=== PATIENT | male | born 1960 | race Two or more races ===

== ENCOUNTER 2019-06-18 11:35 | Emergency (ER) | payer MEDICARE, MEDICAID ==
[~2019-06-18] VITALS: Ht 170.2 cm; Wt 98.4 kg
[2019-06-18 11:48] VITALS: BP 134/74
[2019-06-18] MEDS ORDERED: cefTRIAXone SOD 1,000 MG VL IM ONE ×2 (14:45)
== END 2019-06-18 15:52 | disposition home or self-care (01) ==
LOC: ER 11:35
DX: S00.86XA Insect bite (nonvenomous) of other part of head, initial encounter (principal); W57.XXXA Bitten or stung by nonvenomous insect and other nonvenomous arthropods, initial encounter; Y93.89 Activity, other specified; Y92.89 Other specified places as the place of occurrence of the external cause; Y99.8 Other external cause status
CPT/HCPCS: 96372; 99283; J0696

== ENCOUNTER 2019-06-22 14:51 | Emergency (ER) | payer MEDICARE, MEDICAID ==
[~2019-06-22] VITALS: Ht 170.2 cm; Wt 98.4 kg
[2019-06-22 20:02] VITALS: BP 142/79
== END 2019-06-22 20:22 | disposition home or self-care (01) ==
LOC: ER 14:51
DX: L02.01 Cutaneous abscess of face (principal); I12.9 Hypertensive chronic kidney disease with stage 1 through stage 4 chronic kidney disease, or unspecified chronic kidney disease; E11.22 Type 2 diabetes mellitus with diabetic chronic kidney disease; N18.9 Chronic kidney disease, unspecified
CPT/HCPCS: 10060